=== PATIENT | female | born 1960 | race Caucasian/White ===

== ENCOUNTER 2021-07-20 18:17 | Observation (INO) | payer OTHER, SELFPAY ==
[2021-07-20] VITALS (18 sets, daily range): BP systolic 127–173; BP diastolic 58–83; PULSE 70–119; RESP 15–20; TEMP 35.9–36.9; O2SAT 93–98; BMI 33.3; BMI 34.8
--- NOTE | 2021-07-20 18:27 | DI.RAD.S_ITS ---
PROCEDURE: XR CHEST 1V INDICATIONS: chest pain TECHNIQUE: One view of the chest was acquired. COMPARISON: None. FINDINGS: Surgical changes and devices: None. Lungs and pleura: Lungs are clear. No pleural effusions or pneumothorax. Mediastinum: Mediastinal contours appear normal. Heart size is normal. Bones and chest wall: No suspicious bony lesions. Overlying soft tissues appear unremarkable. IMPRESSION: 1. No acute cardiopulmonary disease. Dictated by: Kael Morris M.D. on 07/20/2021 at 19:23 Approved by: Kael Morris M.D. on 07/20/2021 at 19:25
--- NOTE | 2021-07-20 18:33 | ED_ITS ---
HPI - General Adult General Chief complaint: Hypertension Stated complaint: High BP Time Seen by Provider: 07/20/21 18:29 Source: patient Mode of arrival: Ambulatory Limitations: no limitations History of Present Illness HPI narrative: 61-year-old female without significant medical history presents with a chief complaint of not feeling well over the past few weeks. She has had increasing fatigue, particularly with exertion as well as nausea and dizziness with lightheadedness. Additionally she has been having left-sided chest pressure for the past few days. The symptoms certainly worsen with exertion and seem to improve when she relaxes. She has been nauseous but denies any vomiting. She denies any obvious radiation of her pressure. She states it is currently a 5/10, maximum was 6/10 and she does not remember how it started. She denies any history of the same and has had no cardiac evaluation such as an echo or stress test. She denies recent trauma or travel. She has no history of blood clot. Related Data Home Medications Medication Instructions Recorded Confirmed amantadine HCl 100 mg capsule 100 mg PO BEDTIME 07/20/21 07/20/21 clonazepam 1 mg tablet 2 mg PO BEDTIME 07/20/21 07/20/21 divalproex 500 mg tablet,extended 500 mg PO BEDTIME 07/20/21 07/20/21 release 24 hr gabapentin 600 mg tablet 600 mg PO BEDTIME 07/20/21 07/20/21 nortriptyline 25 mg capsule 25 mg PO BEDTIME 07/20/21 07/20/21 prazosin 2 mg capsule (Minipress) 2 mg PO BEDTIME 07/20/21 07/20/21 tramadol 50 mg tablet 50 mg PO PRN PRN 07/20/21 07/20/21 Allergies Allergy/AdvReac Type Severity Reaction Status Date / Time erythromycin base Allergy Verified 07/20/21 18:24 Penicillins Allergy Verified 07/20/21 18:24 Review of Systems Review of Systems Narrative: GENERAL: See HPI HEENT: Denies sinus pain, ear pain, sore throat, difficulty swallowing, dizziness. RESPIRATORY: See HPI CARDIOVASCULAR: See HPI GASTROINTESTINAL: Denies nausea, vomiting, abdominal pain, diarrhea, constipation, melena. : Denies dysuria, frequency, incontinence, hematuria, urinary retention. MUSCULOSKELETAL: denies weakness, joint pain, or bony pain SKIN: Denies rash, skin lesions, or other NEUROLOGIC: Denies weakness, headache, numbness, change in speech, confusion, seizures, incoordination. PSYCHIATRIC: No concerning psychosocial issues. 12 point review of systems is negative except for those stated above Patient History Medical History (Updated 07/21/21 @ 02:14 by Zhen Pineda DO) Ankle fracture Chronic ankle pain Surgical History (Updated 07/20/21 @ 21:27 by Johny Gupta MD) H/O hysterectomy for benign disease H/O: History of ankle surgery History of cholecystectomy S/P cervical spinal fusion Family History (Updated 07/20/21 @ 21:28 by Johny Gupta MD) Father Congestive heart failure Mother Diabetes mellitus Congestive heart failure Social History household members: spouse Smoking Status: Unknown if ever smoked Smoking Status: Unknown if ever smoked alcohol intake frequency: holidays/special occasions only Substance Use Type: does not use Exam Narrative Exam Narrative: GENERAL: [61] year old patient appears stated age. Well- developed patient, in mild distress. HEAD: Atraumatic. Normocephalic. EYES: Pupils equal round and reactive. Extraocular motions intact. No scleral icterus. No injection or drainage. ENT: Nose without bleeding, purulent drainage. Throat without erythema, tonsillar hypertrophy or exudate. Airway patent. NECK: Trachea midline. Non tender CARDIOVASCULAR: Regular rate and rhythm without murmurs, gallops, or rubs. RESPIRATORY: Clear to auscultation. Breath sounds equal bilaterally. No wheezes, rales, or rhonchi. GASTROINTESTINAL: Abdomen soft, non-tender, nondistended. EXTREMITIES: No edema or joint tenderness. BACK: Nontender without deformity or crepitance. No flank tenderness. NEURO: AOx3. SKIN: No rash or erythema of visible areas Initial Vital Signs Initial Vital Signs: Vital Signs Temperature 96.7 F L 07/20/21 18:20 Pulse Rate 98 H 07/20/21 18:20 Respiratory Rate 15 07/20/21 18:20 Blood Pressure 173/75 H 07/20/21 18:20 Pulse Oximetry 96 07/20/21 18:20 Scores HEART Score Heart Score history: Moderately Suspicious Heart Score EKG: Non-Specific repolarization disturbance Heart Score Age: 45-64 years old Heart Score risk factors: 1-2 risk factors Heart Score troponin: < or = to normal limit Heart Score Total: 4 Course Orders Ordered: ED Orders 07/20/21 19:22 EKG-12 Lead Stat 07/20/21 20:25 Troponin I Stat Amantadine HCl (Amantadine 100 Mg Capsule) 100 mg PO BEDTIME [facility] Last Admin: 07/21/21 00:11 Dose: Not Given Documented by: MARIA DEL CARMEN Aspirin (Aspirin Ec 81 Mg Tablet) 81 mg PO DAILY [facility] Clonazepam (Clonazepam 0.5 Mg Tablet) 2 mg PO BEDTIME [facility] Last Admin: 07/21/21 00:09 Dose: 2 mg Documented by: MARIA DEL CARMEN Divalproex Sodium (Divalproex Er 250 Mg Tab) 500 mg PO BEDTIME [facility] Enoxaparin Sodium (Enoxaparin 40 Mg/0.4 Ml Syringe) 40 mg SUBCUT DAILY [facility] Gabapentin (Gabapentin 600 Mg Tablet) 600 mg PO BEDTIME [facility] Last Admin: 07/21/21 00:09 Dose: 600 mg Documented by: MARIA DEL CARMEN Ibuprofen (Ibuprofen 600 Mg Tablet) 600 mg PO Q6HR PRN PRN Reason: Fever/Mild Pain (1-3) Metoprolol Tartrate (Metoprolol Ir 50 Mg Tablet) 50 mg PO BID [facility] Naloxone HCl (Naloxone 0.4 Mg/Ml Vial) 0.2 mg IV Q2MIN PRN PRN Reason: Opiate Reversal Nortriptyline HCl (Nortriptyline Hcl 25 Mg Capsule) 75 mg PO BEDTIME [facility] Last Admin: 07/21/21 00:42 Dose: 75 mg Documented by: MARIA DEL CARMEN Ondansetron HCl (Ondansetron 4 Mg/2 Ml Inj) 4 mg IV Q8HR PRN PRN Reason: Nausea And Vomiting Ondansetron HCl (Ondansetron 4 Mg Odt) 4 mg PO Q8HR PRN PRN Reason: Nausea And Vomiting Prazosin HCl (Prazosin 1 Mg Capsule) 2 mg PO BEDTIME ALINE Sodium Chloride (Sodium Chloride 0.9% Flush) 10 ml IV PRN PRN PRN Reason: Flush Sodium Chloride (Sodium Chloride 0.9% Flush) 10 ml IV BID ALINE Tramadol HCl (Tramadol 50 Mg Tablet) 50 mg PO TID PRN PRN Reason: Pain, Moderate (4-6) Discontinued Medications Aspirin (Aspirin 81 Mg Chew Tab) 324 mg PO NOW ONE Stop: 07/20/21 18:32 Last Admin: 07/20/21 18:59 Dose: 324 mg Documented by: RANDY Carvedilol (Carvedilol 3.125 Mg Tablet) 6.25 mg PO NOW ONE Stop: 07/20/21 20:02 Last Admin: 07/20/21 20:47 Dose: 6.25 mg Documented by: RANDY Nitroglycerin (Nitroglycerin 0.4 Mg Sl Tab) 0.4 mg SL [id number] PRN PRN Reason: Chest Pain Last Admin: 07/20/21 18:58 Dose: 0.4 mg Documented by: RANDY Nitroglycerin (Nitroglycerin 0.4 Mg Sl Tab) 0.4 mg SL [id number] PRN PRN Reason: Chest Pain Nortriptyline HCl (Nortriptyline Hcl 25 Mg Capsule) 25 mg PO BEDTIME ALINE Reevaluation(s) Reevaluation #1: Complete resolution of symptoms after nitro, blood pressure dropped in the 170s to 120s. Consultations Consultation #1: Discussed with Cardiology, she sure the opinion that it is difficult to distinguish between hypertensive emergency and acute coronary syndrome but agrees with leaning towards cardiac evaluation. She recommends patient stay at our facility, trend enzymes, receive aspirin and further nitro if needed, echocardiogram and ongoing consultation with Cardiology if needed should patient rule in Vital Signs Vital signs: Vital Signs - 8 hr 07/20/21 20:30 Pulse Rate 91 H Respiratory Rate 16 Blood Pressure 134/73 Pulse Oximetry 97 Medical Decision Making Lab Data Result diagrams: 07/20/21 18:35 07/20/21 18:35 Labs: Lab Results 07/20/21 07/20/21 07/20/21 Range/Units 18:35 18:35 19:04 WBC 7.4 (4.5-11.0) X10^3/uL RBC 4.90 (4.0-5.2) X10^6/uL Hgb 14.6 (12.0-16.0) g/dL Hct 43.1 (36-46) % MCV 88.0 (80-100) fL MCH 29.9 (26-34) PG MCHC 33.9 (30-36) % RDW 13.8 (11.6-14.8) % Plt Count 312 (150-400) X10^3/uL Neut % (Auto) 54.7 (50-75) % Lymph % (Auto) 33.4 (25-40) % [place] % (Auto) 8.0 (3-14) % Eos % (Auto) 3.1 (2-4) % Baso % (Auto) 0.8 (0-2) % Neut # (Auto) 4000 (7889-4190) /uL Lymph # (Auto) 2500 (3406-0129) /uL [place] # (Auto) 600 (0-900) /uL Eos # (Auto) 200 (0-450) /uL Baso # (Auto) 100 (0-100) /uL Sodium 139 (137-145) mmol/L Potassium 4.0 (3.4-5.1) mmol/L Chloride 108 H (98-107) mmol/L Carbon Dioxide 21 L (22-32) mmol/L BUN 10 (7-17) mg/dL Creatinine 0.72 (0.52-1.04) mg/dL Estimated GFR > 60.0 (>60) mL/min BUN/Creatinine Ratio 13.9 (6-22) Glucose 146 H (80-110) mg/dL Calcium 9.2 (8.4-10.2) mg/dL Total Bilirubin 0.5 (0.2-1.3) mg/dL AST 28 (14-36) IU/L ALT 25 (<35) IU/L Alkaline Phosphatase 112 (38-126) U/L Total Creatine Kinase 69 (30-135) U/L CK-MB (CK-2) TNP CK-MB (CK-2) Rel Index TNP Troponin I < 0.012 (0.01-0.034) ng/mL Total Protein 7.6 (6.3-8.2) g/dL Albumin 4.4 (3.5-5.0) g/dL Globulin 3.2 (1.7-4.1) g/dL Albumin/Globulin Ratio 1.4 (1.0-2.8) Lipase 52 (23-300) U/L SARS-CoV-2 (PCR) Negative (Negative) 07/20/21 Range/Units 20:25 WBC (4.5-11.0) X10^3/uL RBC (4.0-5.2) X10^6/uL Hgb (12.0-16.0) g/dL Hct (36-46) % MCV (80-100) fL MCH (26-34) PG MCHC (30-36) % RDW (11.6-14.8) % Plt Count (150-400) X10^3/uL Neut % (Auto) (50-75) % Lymph % (Auto) (25-40) % [place] % (Auto) (3-14) % Eos % (Auto) (2-4) % Baso % (Auto) (0-2) % Neut # (Auto) (0847-4502) /uL Lymph # (Auto) (5574-8969) /uL [place] # (Auto) (0-900) /uL Eos # (Auto) (0-450) /uL Baso # (Auto) (0-100) /uL Sodium (137-145) mmol/L Potassium (3.4-5.1) mmol/L Chloride (98-107) mmol/L Carbon Dioxide (22-32) mmol/L BUN (7-17) mg/dL Creatinine (0.52-1.04) mg/dL Estimated GFR (>60) mL/min BUN/Creatinine Ratio (6-22) Glucose (80-110) mg/dL Calcium (8.4-10.2) mg/dL Total Bilirubin (0.2-1.3) mg/dL AST (14-36) IU/L ALT (<35) IU/L Alkaline Phosphatase (38-126) U/L Total Creatine Kinase (30-135) U/L CK-MB (CK-2) CK-MB (CK-2) Rel Index Troponin I < 0.012 (0.01-0.034) ng/mL Total Protein (6.3-8.2) g/dL Albumin (3.5-5.0) g/dL Globulin (1.7-4.1) g/dL Albumin/Globulin Ratio (1.0-2.8) Lipase (23-300) U/L SARS-CoV-2 (PCR) (Negative) Discharge Plan Departure Patient Disposition: Admitted as Observation Clinical Impression: Chest pain Qualifiers: Chest pain type: unspecified Qualified Code(s): R07.9 - Chest pain, unspecified Admit Date/Time: 07/20/21 20:36 Admit Provider: Johny Gupta
[2021-07-20 18:41] LABS: Add Manual Diff / Slide Review NO; Basophils Absolute Auto 100 /uL (0-100); Basophils Percent Auto 0.8 % (0-2); Eosinophils Absolute Auto 200 /uL (0-450); Eosinophils Percent Auto 3.1 % (2-4); Hematocrit 43.1 % (36-46); Hemoglobin 14.6 g/dL (12.0-16.0); Lymphocytes Absolute Auto 2500 /uL (1100-4500); Lymphocytes Percent Auto 33.4 % (25-40); Mean Corpuscular HGB Conc 33.9 % (30-36); Mean Corpuscular Hemoglobin 29.9 PG (26-34); Monocytes Absolute Auto 600 /uL (0-900); Neutrophils Absolute Auto 4000 /uL (1500-7000); Neutrophils Percent Auto 54.7 % (50-75); Platelet Count 312 X10^3/uL (150-400); Red Cell Distribution Width 13.8 % (11.6-14.8); White Blood Cell Count 7.4 X10^3/uL (4.5-11.0)
[2021-07-20 18:50] LABS: Alanine Aminotransferase 25 IU/L (<35); Albumin 4.4 g/dL (3.5-5.0); Albumin Globulin Ratio 1.4 (1.0-2.8); Alkaline Phosphatase 112 U/L (38-126); Aspartate Aminotransferase 28 IU/L (14-36); BUN Creatinine Ratio 13.9 (6-22); Bilirubin Total 0.5 mg/dL (0.2-1.3); Blood Urea Nitrogen 10 mg/dL (7-17); Calcium 9.2 mg/dL (8.4-10.2); Carbon Dioxide 21 mmol/L (22-32); Chloride 108 mmol/L (98-107); Creatine Kinase 69 U/L (30-135); Estimated Glomerular Filt Rate > 60.0 mL/min (>60); Globulin 3.2 g/dL (1.7-4.1); Glucose 146 mg/dL (80-110); HEMOLYSIS 16 (0-50); Lipase 52 U/L (23-300); Sodium 139 mmol/L (137-145); Total Protein 7.6 g/dL (6.3-8.2)
[2021-07-20] MEDS: NITROGLYCERIN 0.4 MG SL TAB SL (18:58)
[2021-07-20] MEDS: ASPIRIN 81 MG CHEW TAB 324 MG PO (18:59)
[2021-07-20 19:02] LABS: Troponin I < 0.012 ng/mL (0.01-0.034)
[2021-07-20 20:00] LABS: COVID19 - ADMIT (NP swab/PCR) Negative (Negative)
[2021-07-20] MEDS: carvediloL 3.125 MG TABLET 6.25 MG PO (20:47)
[2021-07-20 20:55] LABS: Troponin I < 0.012 ng/mL (0.01-0.034)
--- NOTE | 2021-07-20 21:13 | DI.NM.S_ITS ---
PROCEDURE: NM JYOTI PERF SPECT SINGLE STUDY Exercise myocardial perfusion SPECT with gated imaging and ejection fraction RADIOPHARMACEUTICAL: 21.8 mCi Tc-99m sestamibi IV at peak exercise. INDICATIONS: Chest Pain TECHNIQUE: Radiopharmaceutical was injected at peak stress test. SPECT images were obtained, with perfusion images in short axis, horizontal long axis, and vertical long axis views. Gated images were reviewed using [employer] software. COMPARISON: None. CARDIAC STRESS: A pharmaceutical nuclear stress test was done using lexiscan 0.4mg IV X1. Hemodynamic data: There is normal blood pressure and heart response to lexiscan. Symptoms: Patient denied anginal chest pain during exercise. EKG: No diagnostic changes of ischemia; no ectopy. FINDINGS: Raw data: There is good labeling of myocardium by radiotracer. No significant motion artifacts. Kcoy-kp-tmqqs ratio is 0.32 (normal is less than 0.38 for sestamibi tracer, and less than 0.50 for thallium tracer). Left ventricular function: Gated images demonstrate normal left ventricle wall thickening. No segmental wall motion abnormalities. Left ventricle end diastolic volume is 68 mL. Left ventricle stress ejection fraction is 81%; normal values are above 45%. Myocardial perfusion: There is normal distribution of activity in the left and right ventricular myocardium, without focal perfusion defects. IMPRESSION: Low risk, probably normal pharmaceutical nuclear stress test 1) No perfusion evidence of ischemia or infarction. 2) Normal left ventricular size, wall motion, and systolic function (EF post stress 81%). 3) No diagnostic ECG evidence of ischemia. 4) No anginal chest pain during the study. 5) No prior nuclear stress test available for comparison. Dictated by: Chanel Tatum MD on 07/22/2021 at 16:20 Approved by: Chanel Tatum MD on 07/22/2021 at 16:25
--- NOTE | 2021-07-20 21:14 | PM.HP.1 ---
History of Present Illness History of Present Illness Date Patient Seen: 07/20/21 Time Patient Seen: 21:14 Chief complaint: High BP Narrative: This is a 61-year-old female with a past medical history of depression and chronic ankle problems who presents with 2 weeks of fatigue, mild dyspnea on exertion and left lower chest squeezing pain for the last 2 days. She obtained a blood pressure cuff today and when she measured her 1st pressure it was 170/100 so she came to the emergency department to have that evaluated. Once here she discussed her chest pain and so an EKG and troponin were done which were negative so she was also given nitroglycerin which resolved her pain quite quickly. She says she has been having this left chest pain off and on for months but has ignored it because she felt that for a female to have a heart attack you had to have left arm pain. She has no prior history of hypertension, coronary artery disease or cerebrovascular disease. 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 Patient History Medical History (Updated 07/20/21 @ 21:27 by Johny Gupta MD) Ankle fracture Chronic ankle pain Surgical History (Updated 07/20/21 @ 21:27 by Johny Gupta MD) H/O hysterectomy for benign disease H/O: History of ankle surgery History of cholecystectomy S/P cervical spinal fusion Family & Social History Family History (Updated 07/20/21 @ 21:28 by Johny Gupta MD) Father Congestive heart failure Mother Diabetes mellitus Congestive heart failure Safety & Behavioral: Feels Safe in Current Yes Environment Been Physically Hurt or No Threatened By a Person Tobacco & Substance use: Smoking Status Never smoked alcohol intake frequency holiday/special occasion Substance Use Type does not use Comment: Her backup decision maker is her Kael Manzano. The Meds Home Medications and Allergies Allergies Allergy/AdvReac Type Severity Reaction Status Date / Time erythromycin base Allergy Verified 07/20/21 18:24 Penicillins Allergy Verified 07/20/21 18:24 Review of Systems Review of Systems Narrative: Positive for left chest pain, shortness of breath and chronic left ankle pain. Negative for coughing, fever, chills, sweats, headache, seizures, rashes, abdominal pain, nausea, vomiting, sore throat. Exam Vital Signs (past 8 hours): - 07/20/21 18:20 07/20/21 18:32 07/20/21 18:33 Temperature 96.7 F L Pulse Rate 98 H 106 H 101 H Respiratory Rate 15 Blood Pressure 173/75 H 168/81 H Pulse Oximetry 96 95 93 07/20/21 18:45 07/20/21 18:58 07/20/21 19:00 Temperature Pulse Rate 94 H 74 119 H Respiratory Rate 19 20 Blood Pressure 160/73 H 160/74 H 129/58 L Pulse Oximetry 94 93 07/20/21 19:15 07/20/21 19:30 07/20/21 19:45 Temperature Pulse Rate 97 H 99 H 96 H Respiratory Rate 18 18 16 Blood Pressure 140/76 139/73 138/74 Pulse Oximetry 94 95 95 07/20/21 20:00 07/20/21 20:15 07/20/21 20:30 Temperature Pulse Rate 98 H 97 H 91 H Respiratory Rate 18 17 16 Blood Pressure 138/75 145/83 H 134/73 Pulse Oximetry 94 94 97 07/20/21 20:47 Temperature Pulse Rate 88 Respiratory Rate Blood Pressure 154/70 H Pulse Oximetry Oxygen Delivery Method Room Air Narrative Exam Narrative: Alert and oriented x3. No apparent distress. Pupils are equally round and reactive to light and accommodation. Sclerae are pink and nonicteric Extraocular muscles are intact No lymph nodes are felt head, neck, supraclavicular area There is no thyromegaly No carotid bruits are heard Heart is regular rate and rhythm without murmur Lungs are clear to auscultation bilaterally She is tender to palpation over the left lower sternal border which is the location of 1 of her 2 chest pain points. Abdomen is soft, bowel sounds positive, nontender, no organomegaly. Skin has no rash or jaundice In extremities have no ankle edema Neuro exam: There is no tremor, cranial nerves 2-12 test intact, deep tendon reflexes are normal symmetrically Motor function is 4/5 throughout. Objective ECG Impression: Sinus rhythm without abnormal ST or T-wave changes. Labs Result Diagrams: 07/20/21 18:35 07/20/21 18:35 Labs: Laboratory Results - last 24 hr 07/20/21 07/20/21 07/20/21 18:35 18:35 19:04 WBC 7.4 RBC 4.90 Hgb 14.6 Hct 43.1 MCV 88.0 MCH 29.9 MCHC 33.9 RDW 13.8 Plt Count 312 Neut % (Auto) 54.7 Lymph % (Auto) 33.4 [place] % (Auto) 8.0 Eos % (Auto) 3.1 Baso % (Auto) 0.8 Neut # (Auto) 4000 Lymph # (Auto) 2500 [place] # (Auto) 600 Eos # (Auto) 200 Baso # (Auto) 100 Sodium 139 Potassium 4.0 Chloride 108 H Carbon Dioxide 21 L BUN 10 Creatinine 0.72 Estimated GFR > 60.0 BUN/Creatinine Ratio 13.9 Glucose 146 H Calcium 9.2 Total Bilirubin 0.5 AST 28 ALT 25 Alkaline Phosphatase 112 Total Creatine Kinase 69 CK-MB (CK-2) TNP CK-MB (CK-2) Rel Index TNP Troponin I < 0.012 Total Protein 7.6 Albumin 4.4 Globulin 3.2 Albumin/Globulin Ratio 1.4 Lipase 52 SARS-CoV-2 (PCR) Negative 07/20/21 20:25 WBC RBC Hgb Hct MCV MCH MCHC RDW Plt Count Neut % (Auto) Lymph % (Auto) [place] % (Auto) Eos % (Auto) Baso % (Auto) Neut # (Auto) Lymph # (Auto) [place] # (Auto) Eos # (Auto) Baso # (Auto) Sodium Potassium Chloride Carbon Dioxide BUN Creatinine Estimated GFR BUN/Creatinine Ratio Glucose Calcium Total Bilirubin AST ALT Alkaline Phosphatase Total Creatine Kinase CK-MB (CK-2) CK-MB (CK-2) Rel Index Troponin I < 0.012 Total Protein Albumin Globulin Albumin/Globulin Ratio Lipase SARS-CoV-2 (PCR) Assessment & Plan Assessment & Plan narrative: This is a 61-year-old female with no prior cardiac or cardiovascular history who presents with left sided chest pain responsive to nitroglycerin, elevated blood pressure, dyspnea on exertion and fatigue. Left chest pain, present on admission. Active. -2 days of left lower chest squeezing sensation with palpable tenderness along the left sternal border -1 sublingual nitroglycerin resolved her chest pain in the emergency department. Received 325 mg of aspirin on admission. -Dr. Carrillo was telephone consulted from the emergency department and recommended rule out ACS admission. -EKG is sinus rhythm without abnormal ST or T-wave changes. Troponin is less than 0.012. -follow serial troponins, repeat EKG in the morning and dose with nitroglycerin if chest pain returns -begin metoprolol 50 mg b.i.d. and aspirin 81 mg daily 07/21 -arrange treadmill nuclear scan when next available inpatient, likely in 2 days on Thursday. New onset hypertension, present on admission. Active. -begin metoprolol Hyperglycemia, present on admission. Active. -no history of diabetes mellitus. -presenting glucose of 146, follow and order A1c. Chronic left ankle pain, present on admission. Chronic. -no current treatment Lovenox for DVT prevention Time Spent With Patient Critical Care time: I spent a total of [] minutes of critical care time on this patient's care today; this time is exclusive of procedural time.
[2021-07-21] VITALS (7 sets, daily range): BP systolic 122–149; BP diastolic 47–72; PULSE 59–70; RESP 16–19; TEMP 36.1–37.1; O2SAT 95–99
[2021-07-21] MEDS: clonazePAM 0.5 MG TABLET 2 MG PO ×2 (00:09→20:11)
[2021-07-21] MEDS: GABAPENTIN 600 MG TABLET PO ×2 (00:09→20:11)
--- NOTE | 2021-07-21 00:32 | PC.NURSE ---
Patient is alert and oriented. Breath sounds CTA with RA sat of 98%. HRR with telemetry reading of SR. Does have 2/10 chest pressure over left breast but states it is intermittent. Does have some dizziness when first getting out of bed. Denies nausea. BT present and abdomen is soft. Denies dysuria, frequency or urgency with urination. Is able to move herself in bed but instructed to call for staff SBA when getting up to bathroom due to dizziness. Wearing bilateral calf SCD's. Fall risk score is moderate; bed alarm is activated.
[2021-07-21] MEDS: NORTRIPTYLINE HCL 25 MG CAPSULE 75 MG PO ×2 (00:42→20:11)
[2021-07-21 06:06] LABS: BUN Creatinine Ratio 16.9 (6-22); Blood Urea Nitrogen 13 mg/dL (7-17); Calcium 8.9 mg/dL (8.4-10.2); Carbon Dioxide 26 mmol/L (22-32); Chloride 106 mmol/L (98-107); Estimated Glomerular Filt Rate > 60.0 mL/min (>60); Glucose 97 mg/dL (80-110); HEMOLYSIS 20 (0-50); Potassium 4.1 mmol/L (3.4-5.1); Sodium 139 mmol/L (137-145)
[2021-07-21 06:10] LABS: Cholesterol 178 mg/dL (140-199); HDL Cholesterol 52 mg/dL (40-60); LDL Cholesterol Calculated 99 mg/dL (<100); Triglycerides 136 mg/dL (35-150)
[2021-07-21 06:15] LABS: Troponin I < 0.012 ng/mL (0.01-0.034)
--- NOTE | 2021-07-21 07:26 | DI.ECHO.S_ITS ---
[facility]---------+ [facility] +---------+ : : [id number] [place] [address] : : : : [id number] : : : : Phone: [phone] Echocardiogram Report + + :Name: LANDON SINGH Study Date: 07/21/2021 Height: 65 in : :[facility] ReadingLocation: Weight: 213 lb : : Gender: Female BSA: 2.0 m2 : :: 1960 Age: 61 yrs BP: 135/55 mmHg: :Reason For Study: Chest pain : :Ordering Physician: Casie : :Hospitalist Performed By: Tianna Neff : :Referring: RXOY YE : + + Interpretation Summary Normal sinus rhythm. Normal LV size and wall thickness. Normal wall motion and left ventricular systolic function. Ejection fraction 60-65%. Stage II diastolic dysfunction. Mild biatrial enlargement. Aortic sclerosis with mild associated aortic regurgitation. No prior study available for comparison. Procedure: A two-dimensional transthoracic echocardiogram with color flow and Doppler was performed. The study quality was technically adequate. There is no prior echocardiogram noted for this patient. The patient was in normal sinus rhythm during the exam. Left Ventricle: The left ventricle appears normal in size, wall thickness, and systolic function without any focal wall motion abnormalities. There is no ventricular septal defect visualized. The ejection fraction is estimated to be 60-65%. Diastolic parameters suggest a pseudonormalization pattern, consistent with probable elevated filling pressures. Right Ventricle: The right ventricle grossly appears normal in size with probable normal systolic function. Atria: There is mild biatrial enlargement. Mitral Valve: The mitral valve leaflets appear mildly thickened, but open well. There is no mitral regurgitation noted. Aortic Valve: The aortic valve is trileaflet. The aortic valve opens well. There is mild aortic regurgitation. Tricuspid Valve: The tricuspid valve is not well visualized, but is grossly normal. Pulmonary artery pressures cannot be estimated because of the lack of a measurable TR jet velocity. Pulmonic Valve: The pulmonic valve leaflets are thin and pliable; valve motion is normal. There is a trace or physiologic amount of pulmonic regurgitation. Great Vessels: The aortic root is normal size. The ascending aorta is mildly enlarged. The inferior vena cava was not visualized. Pericardium/ Pleura There is a trivial pericardial effusion noted. MMode/2D Measurements & Calculations LVIDd: 4.5 cm LVOT diam: 1.9 cm LVIDs: 2.7 cm Ao root diam: 3.2 cm FS: 40.2 % asc Aorta Diam: 3.5 cm EPSS: 0.29 cm IVSd: 0.91 cm LVPWd: 0.71 cm LV oneal. diameter/BSA (cm/m^2): 2.2 LV sys. diameter/BSA (cm/m^2): 1.3 LA A2 area: 21.7 cm2 RA long axis: 5.7 cm LA A4 area: 21.3 cm2 RA area: 18.8 cm2 LA length (vol): 6.4 cm RA vol: 52.3 ml LA vol: 61.0 ml RA : 25.7 ml/m2 LA vol index: 30.0 ml/m2 RVD1 (basal): 3.3 cm Doppler Measurements & Calculations Ao V2 max: 188.4 cm/sec LVOT Max Gary: 107.7 cm/sec Ao V2 mean: 128.9 cm/sec LV V1 max P.7 mmHg Ao max P.2 mmHg LV V1 VTI: 25.9 cm Ao mean P.3 mmHg SOPHY(I,D): 1.9 cm2 Ao V2 VTI: 40.1 cm SOPHY(V,D): 1.7 cm2 sev ratio: 0.64 SOPHY indexed to BSA (cm^2/m^2): 0.93 AI P1/2t: 594.4 msec AI dec slope: 215.1 cm/sec2 MV E max gary: 96.4 cm/sec PA V2 max: 68.2 cm/sec MV A max gary: 91.0 cm/sec PA V2 mean: 43.8 cm/sec MV E/A: 1.1 PA mean P.90 mmHg Med Peak E' Gary: 4.8 cm/sec PA pr(Accel): 26.3 mmHg E/E' med: 20.2 Lat Peak E' Gary: 5.4 cm/sec E/E' lat: 18.0 E/e' average: 19.1 MV dec time: 0.20 sec SV(LVOT): 75.7 ml Electronically signed by: Ava Carrillo M.D. on Reading Physician:07/21/2021 05:04 PM
--- NOTE | 2021-07-21 07:53 | PC.NURSE ---
Day shift: Pt agrees to call staff/use call light when needed to get OOB. Call light in reach.
[2021-07-21] MEDS: ENOXAPARIN 40 MG/0.4 ML SYRINGE SUBCUT (09:16)
[2021-07-21] MEDS: ASPIRIN EC 81 MG TABLET PO (09:16)
[2021-07-21] MEDS: TRAMADOL 50 MG TABLET PO ×2 (09:16→17:46)
[2021-07-21] MEDS: METOPROLOL IR 50 MG TABLET PO ×2 (09:16→20:12)
[2021-07-21] MEDS: SODIUM CHLORIDE 0.9% FLUSH 10 ML IV ×2 (09:17→20:13)
--- NOTE | 2021-07-21 11:59 | CM.DANOTE ---
DCP: Case received, EMR reviewed and met with patient. Introduced self and role. Was able to obtain information from patient regarding patient's baseline activity status prior to hospitalization. DCP assessment completed with information currently available. Patient is a 61 year old female who admitted yesterday evening to the care of the hospitalist team. PCP: Provider in [place], unclear of name. Payer: confirmed: [facility] Patient came to the hospital via private vehicle secondary to some chest discomfort. In the ER she was noted to have increased BP, and had nitro given. She is here for cardiac work up. Patient will be having an echo today, and stress test tomorrow. Met with patient in her room. She is pleasant, alert and oriented. Patient resides in [place] with her spouse, Donny. She is independent at her baseline. P: DCP to continue to follow. Patient should be able to go home when she is deemed medically stable. Kayla Espinal RN/Auto Slip Cover Installer Discharge Planning/Care Management CM Discharge Assessment Start: 07/21/21 11:58 Freq: Status: Active Protocol: Document 07/21/21 11:58 (Rec: 07/21/21 11:59 [id number]) Discharge Planning Assessment Assigned Oracle Programmer Kayla Espinal RN/Auto Slip Cover Installer Advance Directives? No History Provided By Patient,Medical Record Prior Living Arrangements House Household Members spouse Type of transporation used prior to Drives own vehicle admit Independent with ADL's Yes Is patient alert and oriented? Yes Caregiver for Another No Barriers to Discharge No Discharge Plan Home Transportation Arrangement Spouse Referrals Initiated None needed Whiteboard Updated in Patient Room with Yes name and ext. # of Oracle Programmer Review Status In Process Next Review Type Continued Stay Review
[2021-07-21 12:18] LABS: Troponin I < 0.012 ng/mL (0.01-0.034)
--- NOTE | 2021-07-21 14:26 | P.PN_ITS ---
Subjective Subjective Date Patient Seen: 07/21/21 Time Patient Seen: 14:26 Interval history: Denies chest pain or shortness of breath currently. Discussed stress testing planned for tomorrow. Exam Vital Signs (past 8 hours): - 07/21/21 08:00 07/21/21 12:00 Temperature 97.1 F L 97.5 F L Pulse Rate 69 59 L Respiratory Rate 16 16 Blood Pressure 148/69 H 135/55 L Pulse Oximetry 99 95 Oxygen Delivery Method Room Air Oxygen Flow Rate 0 Narrative Exam Narrative: GENERAL APPEARANCE: Well developed, well nourished, in no acute distress. SKIN: Inspection of the skin reveals no rashes, ulcerations or petechiae. HEENT: Normocephalic atraumatic, extraocular muscles are intact, oropharynx is clear and mucous membranes are moist, neck is supple without adenopathy NECK: Supple and symmetric. There was no thyroid enlargement, and no tenderness, or masses were felt. CHEST: Normal AP diameter and normal contour without any kyphoscoliosis. LUNGS: Auscultation of the lungs revealed no wheezes, rhonchi, or rales. CARDIOVASCULAR: There was a regular rate and rhythm without any murmurs, ga llops, rubs. Peripheral pulses were 2+ and symmetric. ABDOMEN: Soft and nontender with normal bowel sounds. No ascites was noted. MUSCULOSKELETAL: There was no tenderness or effusions noted. Muscle strength and tone were normal. EXTREMITIES: No cyanosis, clubbing or edema. NEUROLOGIC: Alert and oriented x 3. Normal affect. Strength is +5/5 in the Upper Extremities and Lower Extremities Bilaterally. Sensation to touch was normal. Objective Labs Result Diagrams: 07/20/21 18:35 07/21/21 05:32 Labs: Laboratory Results - last 24 hr 07/20/21 07/20/21 07/20/21 18:35 18:35 19:04 WBC 7.4 RBC 4.90 Hgb 14.6 Hct 43.1 MCV 88.0 MCH 29.9 MCHC 33.9 RDW 13.8 Plt Count 312 Neut % (Auto) 54.7 Lymph % (Auto) 33.4 Cotton % (Auto) 8.0 Eos % (Auto) 3.1 Baso % (Auto) 0.8 Neut # (Auto) 4000 Lymph # (Auto) 2500 Cotton # (Auto) 600 Eos # (Auto) 200 Baso # (Auto) 100 Sodium 139 Potassium 4.0 Chloride 108 H Carbon Dioxide 21 L BUN 10 Creatinine 0.72 Estimated GFR > 60.0 BUN/Creatinine Ratio 13.9 Glucose 146 H Calcium 9.2 Total Bilirubin 0.5 AST 28 ALT 25 Alkaline Phosphatase 112 Total Creatine Kinase 69 CK-MB (CK-2) TNP CK-MB (CK-2) Rel Index TNP Troponin I < 0.012 Total Protein 7.6 Albumin 4.4 Globulin 3.2 Albumin/Globulin Ratio 1.4 Triglycerides Cholesterol LDL Cholesterol, Calc HDL Cholesterol Lipase 52 SARS-CoV-2 (PCR) Negative 07/20/21 07/21/21 07/21/21 20:25 05:32 05:32 WBC RBC Hgb Hct MCV MCH MCHC RDW Plt Count Neut % (Auto) Lymph % (Auto) Cotton % (Auto) Eos % (Auto) Baso % (Auto) Neut # (Auto) Lymph # (Auto) Cotton # (Auto) Eos # (Auto) Baso # (Auto) Sodium Potassium Chloride Carbon Dioxide BUN Creatinine Estimated GFR BUN/Creatinine Ratio Glucose Calcium Total Bilirubin AST ALT Alkaline Phosphatase Total Creatine Kinase CK-MB (CK-2) CK-MB (CK-2) Rel Index Troponin I < 0.012 < 0.012 Total Protein Albumin Globulin Albumin/Globulin Ratio Triglycerides 136 Cholesterol 178 LDL Cholesterol, Calc 99 HDL Cholesterol 52 Lipase SARS-CoV-2 (PCR) 07/21/21 07/21/21 05:32 11:40 WBC RBC Hgb Hct MCV MCH MCHC RDW Plt Count Neut % (Auto) Lymph % (Auto) Cotton % (Auto) Eos % (Auto) Baso % (Auto) Neut # (Auto) Lymph # (Auto) Cotton # (Auto) Eos # (Auto) Baso # (Auto) Sodium 139 Potassium 4.1 Chloride 106 Carbon Dioxide 26 BUN 13 Creatinine 0.77 Estimated GFR > 60.0 BUN/Creatinine Ratio 16.9 Glucose 97 Calcium 8.9 Total Bilirubin AST ALT Alkaline Phosphatase Total Creatine Kinase CK-MB (CK-2) CK-MB (CK-2) Rel Index Troponin I < 0.012 Total Protein Albumin Globulin Albumin/Globulin Ratio Triglycerides Cholesterol LDL Cholesterol, Calc HDL Cholesterol Lipase SARS-CoV-2 (PCR) [facility] Medical History (Updated 07/21/21 @ 02:14 by Zhen Raymond, DO) Ankle fracture Chronic ankle pain Surgical History (Updated 07/20/21 @ 21:27 by Johny Gupta MD) H/O hysterectomy for benign disease H/O: History of ankle surgery History of cholecystectomy S/P cervical spinal fusion Family History (Updated 07/20/21 @ 21:28 by Johny Gupta MD) Father Congestive heart failure Mother Diabetes mellitus Congestive heart failure Social History household members: spouse Smoking Status: Unknown if ever smoked Assessment & Plan Assessment & Plan narrative: This is a 61-year-old female with no prior cardiac or cardiovascular history who presents with left sided chest pain responsive to nitroglycerin, elevated blood pressure, dyspnea on exertion and fatigue. Pending stress testing planned for tomorrow. Left chest pain, present on admission. improved -2 days of left lower chest squeezing sensation with palpable tenderness along the left sternal border -1 sublingual nitroglycerin resolved her chest pain in the emergency department.? Received 325 mg of aspirin on admission. -Dr. Carrillo was telephone consulted from the emergency department and recommended rule out ACS admission. -EKG is sinus rhythm without abnormal ST or T-wave changes.? Troponin is less than 0.012. -follow serial troponins, repeat EKG in the morning and dose with nitroglycerin if chest pain returns -begin metoprolol 50 mg b.i.d. and aspirin 81 mg daily 07/21 -arrange treadmill nuclear scan when next available inpatient, no available beds for transfer. -TTE ordered. New onset hypertension, present on admission.? Active. -begin metoprolol Hyperglycemia, present on admission.? Active. -no history of diabetes mellitus. -presenting glucose of 146, follow and order A1c. Chronic left ankle pain, present on admission.? Chronic. -no current treatment Lovenox for DVT prevention Time Spent With Patient Critical Care time: I spent a total of [] minutes of critical care time on this patient's care today; this time is exclusive of procedural time.
[2021-07-21] MEDS: PANTOPRAZOLE DR 20 MG TABLET PO (16:05)
[2021-07-21] MEDS: DIVALPROEX ER 250 MG TAB 500 MG PO (20:11)
[2021-07-21] MEDS: PRAZOSIN 1 MG CAPSULE 2 MG PO (20:12)
[2021-07-21] MEDS: MELATONIN 3 MG TABLET 9 MG PO (20:12)
[2021-07-22 05:51] VITALS: BP 109/52; PULSE 59; RESP 16; TEMP 37.1; O2SAT 94
[2021-07-22 06:32] LABS: Hemoglobin A1C% w Est Avg Glu 5.3 % (4.0-6.0)
[2021-07-22 06:39] LABS: BUN Creatinine Ratio 17.6 (6-22); Blood Urea Nitrogen 16 mg/dL (7-17); Calcium 8.7 mg/dL (8.4-10.2); Carbon Dioxide 27 mmol/L (22-32); Chloride 106 mmol/L (98-107); Estimated Glomerular Filt Rate > 60.0 mL/min (>60); Glucose 94 mg/dL (80-110); HEMOLYSIS < 15 (0-50); Potassium 4.4 mmol/L (3.4-5.1); Sodium 139 mmol/L (137-145)
[2021-07-22 07:15] LABS: TSH w/ Reflex to FT4 3.93 uIU/mL (0.47-4.68)
[2021-07-22] MEDS: PANTOPRAZOLE DR 20 MG TABLET PO (07:46)
[2021-07-22] MEDS: ENOXAPARIN 40 MG/0.4 ML SYRINGE SUBCUT (07:46)
[2021-07-22] MEDS: SODIUM CHLORIDE 0.9% FLUSH 10 ML IV (07:48)
--- NOTE | 2021-07-22 07:54 | PC.NURSE ---
Day shift: Metoprolol not given this AM. Stress test today and Dr Mai said to not give.
[2021-07-22 08:00] VITALS: BP 123/60; PULSE 64; RESP 18; TEMP 36.8; O2SAT 95
[2021-07-22 12:00] VITALS: BP 130/64; PULSE 64; RESP 18; TEMP 36.6; O2SAT 96
--- NOTE | 2021-07-22 12:46 | PC.NURSE ---
Day shift: Pt off unit for stress test at approx 1245. Off tele and [employer] aware.
--- NOTE | 2021-07-22 14:16 | PC.NURSE ---
Day shift: Pt back on AC unit at approx 1410. She voided and then is back in bed w/ no c/o pain or nausea. Eating lunch. Back on tele. Awaiting results of Stress Tesrt. Denies any chest pain. Call light in reach.
[2021-07-22 15:28] VITALS: BP 115/64; PULSE 70; RESP 16; TEMP 36.3; O2SAT 99
--- NOTE | 2021-07-22 16:37 | PM.DS.1 ---
History of Present Illness History of Present Illness Date Patient Seen: 07/22/21 Time Patient Seen: 16:38 Chief complaint: High BP Narrative: Per Dr. Gupta, This is a 61-year-old female with a past medical history of depression and chronic ankle problems who presents with 2 weeks of fatigue, mild dyspnea on exertion and left lower chest squeezing pain for the last 2 days.? She obtained a blood pressure cuff today and when she measured her 1st pressure it was 170/100 so she came to the emergency department to have that evaluated.? Once here she discussed her chest pain and so an EKG and troponin were done which were negative so she was also given nitroglycerin which resolved her pain quite quickly.? She says she has been having this left chest pain off and on for months but has ignored it because she felt that for a female to have a heart attack you had to have left arm pain.? She has no prior history of hypertension, coronary artery disease or cerebrovascular disease.? 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 Discharge Providers Provider Date of admission: 07/20/21 20:36 Discharge Date: 07/22/21 Discharge provider: Wilver Mai DO Summary Hospital Course Discharge Diagnosis: Chest pain, present on admission, rule out ACS. improved New diagnosis of hypertension, present on admission.? Active. Hyperglycemia, present on admission. resolved Chronic left ankle pain, present on admission.? Chronic. Hospital Course: This is a 61-year-old female with no prior cardiac or cardiovascular history who presents with left sided chest pain responsive to nitroglycerin, elevated blood pressure, dyspnea on exertion and fatigue. She underwent cardiac stress testing which was deemed low risk. Her echocardiogram showed a preserved ejection fraction but have evidence of grade 2 diastolic dysfunction. She did not have any evidence of volume overload or heart failure on exam. She was started on a beta-aura for her hypertension and had no recurrence of symptoms during her stay here. No other medication changes were recommended at the time of discharge. Cholesterol panel was unremarkable, as was TSH. She did have some mild hyperglycemia on admission labs but A1c was noted to be 5.3%. Recommend that patient continue her beta-aura therapy and follow-up with her primary care provider in 1-2 weeks for continued blood pressure management. Exam Vital Signs (past 8 hours): - 07/22/21 12:00 07/22/21 15:28 Temperature 98 F 97.3 F L Pulse Rate 64 70 Respiratory Rate 18 16 Blood Pressure 130/64 115/64 Pulse Oximetry 96 99 Oxygen Delivery Method Room Air Oxygen Flow Rate 0 Narrative Exam Narrative: GENERAL APPEARANCE: Well developed, well nourished, in no acute distress. LUNGS: Auscultation of the lungs revealed no wheezes, rhonchi, or rales. CARDIOVASCULAR: There was a regular rate and rhythm without any murmurs, gallops, rubs. Peripheral pulses were 2+ and symmetric. ABDOMEN: Soft and nontender with normal bowel sounds. No ascites was noted. MUSCULOSKELETAL: There was no tenderness or effusions noted. Muscle strength and tone were normal. EXTREMITIES: No cyanosis, clubbing or edema. NEUROLOGIC: Alert and oriented x 3. Normal affect. Strength is +5/5 in the Upper Extremities and Lower Extremities Bilaterally. Objective Labs Result Diagrams: 07/20/21 18:35 07/22/21 05:58 Labs: Laboratory Results - last 24 hr 07/22/21 07/22/21 07/22/21 05:58 05:58 05:58 Sodium 139 Potassium 4.4 Chloride 106 Carbon Dioxide 27 BUN 16 Creatinine 0.91 Estimated GFR > 60.0 BUN/Creatinine Ratio 17.6 Glucose 94 Hemoglobin A1c 5.3 Calcium 8.7 TSH 3.93 [facility] Medical History (Updated 07/21/21 @ 02:14 by Zhen Pineda DO) Ankle fracture Chronic ankle pain Surgical History (Updated 07/20/21 @ 21:27 by Johny Gupta MD) H/O hysterectomy for benign disease H/O: History of ankle surgery History of cholecystectomy S/P cervical spinal fusion Family History (Updated 07/20/21 @ 21:28 by Johny Gupta MD) Father Congestive heart failure Mother Diabetes mellitus Congestive heart failure Social History household members: spouse Smoking Status: Unknown if ever smoked Discharge Plan Discharge Plan Patient Disposition: Home Provider Discharge Comment: You were admitted to the hospital with chest pain. Cardiac stress testing appeared normal. Recommend you follow up with your PCP in 1-2 weeks for further evaluation. We have started a new blood pressure medication, please follow up with PCP for continued prescription as your needs may change management time. Discharge orders & Medications Prescriptions: New metoprolol tartrate 50 mg Tablet 50 mg PO BID 30 Days Qty: 60 RF: 0 Continued prazosin [Minipress] 2 mg capsule 2 mg PO BEDTIME RF: 0 gabapentin 600 mg Tablet 600 mg PO BEDTIME RF: 0 clonazepam 1 mg tablet 2 mg PO BEDTIME RF: 0 tramadol 50 mg tablet 50 mg PO PRN PRN (Reason: pain) RF: 0 amantadine HCl 100 mg capsule 100 mg PO BEDTIME RF: 0 nortriptyline 25 mg capsule 25 mg PO BEDTIME RF: 0 divalproex 500 mg tablet extended release 24 hr 500 mg PO BEDTIME RF: 0 Diet/Activity/Treatments Diet: Diet as Tolerated and Low-sodium Activity: As tolerated Discharge Data Attending Provider: Johny Gupta
--- NOTE | 2021-07-22 17:25 | PC.NURSE ---
Addendum entered by Dixie Barker R.N. 07/22/21 17:52: Pt ride here, awaiting pt meds from pharmacy D/C to waiting vehicle in stable condition. Original Note: Pt denies any issues at this time Orders recieved for D/C HL & tele removed w/o incidence. Awaiting ride.
== END 2021-07-22 18:00 | disposition home or self-care (01) ==
LOC: ED 19:48 → AC 20:37
PROVIDERS: Internal Medicine; Admitting Provider Family Medicine; Emergency Provider Emergency Medicine; Referring Provider Emergency Medicine; Visit Provider Family Medicine
DX: I10 Essential (primary) hypertension (principal); R07.9 Chest pain, unspecified; R42 Dizziness and giddiness; R11.0 Nausea; M25.572 Pain in left ankle and joints of left foot; R73.9 Hyperglycemia, unspecified; Z20.822 Contact with and (suspected) exposure to COVID-19
CPT/HCPCS: 36415; 71045; 78451; 80048; 80053; 80061; 82550; 82962; 83036; 83690; 84443; 84484; 85025; 87635; 93005; 93010; 93017; 93306; 99284; 99285; C9803; G0378; A9502; J1650; J2785